=== PATIENT | female | born 1955 | race American Indian/Alaskan Native ===

== ENCOUNTER 2016-12-20 09:44 | Outpatient (CLI) | payer MEDICAID ==
[2016-12-20 10:10] LABS: Mean Corpuscular HGB Conc 32 % (30-34); Platelet Count 214 K/mm3 (140-440); Red Blood Count 5.75 M/mm3 (3.65-5.03); Red Cell Distribution Width 14.8 % (13.2-15.2)
[2016-12-20 10:13] LABS: Mean Corpuscular Volume 66 fl (79-97)
[2016-12-20 10:14] LABS: Mean Corpuscular Hemoglobin 21 pg (28-32)
[2016-12-20 10:35] LABS: Alanine Aminotransferase 24 units/L (7-56); Albumin 4.2 g/dL (3.9-5); Albumin/Globulin Ratio 1.4 %; Alkaline Phosphatase 105 units/L (35-129); Anion Gap 18 mmol/L; BUN/Creatinine Ratio 21.66; Blood Urea Nitrogen 13 mg/dL (7-17); Calcium 9.1 mg/dL (8.4-10.2); Carbon Dioxide 27 mmol/L (22-30); Chloride 107.2 mmol/L (98-107); Cholesterol 270 mg/dL (50-199); Glucose 112 mg/dL (65-100); HDL Cholesterol 52 mg/dL (40-59); LDL Cholesterol,Direct 182 mg/dL (50-130); Potassium 3.8 mmol/L (3.6-5.0); Sodium 148 mmol/L (137-145); Total Protein 7.2 g/dL (6.3-8.2); Triglycerides 181 mg/dL (2-149)
--- NOTE | 2016-12-20 12:13 | Cat Scan Report ---
CT chest with contrast: COPD. Transverse images are obtained through the chest into the upper abdomen with comparison to comparable exam in January 2015. Apical scar changes predominantly seen on the right are unchanged. The lungs are clear of any nodule and no infiltrate. The lungs appear relatively well aerated but are not convincingly hyperexpanded. Central airways are patent. There is no adenopathy. Cardiac chambers appear grossly normal in size. No filling defects identified in the pulmonary vessels. Sections carried into the upper abdomen demonstrate 3 cysts in the left kidney at least one of which seen on prior study. Kyphosis and degenerative spondylosis identified in the mid thoracic spine. The bones do appear somewhat demineralized. Impression: No acute change compared to 2015. No convincing changes of COPD.
== END 2016-12-20 09:45 | disposition home or self-care (01) ==
LOC: CT 09:44
PROVIDERS: ATTEND Internal Medicine
DX: J44.9 Chronic obstructive pulmonary disease, unspecified (principal); N28.1 Cyst of kidney, acquired; M47.894 Other spondylosis, thoracic region; M40.294 Other kyphosis, thoracic region
CPT/HCPCS: 36415; 71260; 80053; 80061; 82785; 84436; 84443; 85027; Q9967

== ENCOUNTER 2017-03-01 14:16 | Emergency (ER) | payer MEDICAID ==
[2017-03-01 14:49] VITALS: BP 145/68
[2017-03-01] MEDS ORDERED: DELTASONE PO ONE (16:04)
[2017-03-01] MEDS ORDERED: TYLENOL PO ONE (16:04)
[2017-03-01] MEDS ORDERED: DUONEB *Not for PRN Use IH ONE (16:05)
--- NOTE | 2017-03-01 17:30 | Emergency Department Report ---
Upper Respiratory HPI - HPI Chief Complaint: Upper Respiratory Infection Stated Complaint: gen illness/cough Time Seen by Provider: 03/01/17 15:57 Duration: 5 Days URI Symptoms: Rhinorrhea: Yes, Sore Throat: Yes, Cough: Yes, Shortness of Breath : No, Sick Contacts: No, Unable to Take Fluids: No, Urine Output Abnormal: No, Listless Behavior: No - Home Meds and Allergies Home Medications: Previous Rx's Medication Instructions Recorded Last Taken Type Acetaminophen/Codeine [Tylenol 2 tab PO Q6H PRN #20 tab 08/15/14 Unknown Rx /Codeine # 3 tab] Gentamicin 0.3% Ophth Soln 2 drops OP Q4H 5 Days 03/23/15 Unknown Rx traMADol [Ultram 50 MG tab] 50 mg PO Q6HR PRN #20 tablet 03/23/15 Unknown Rx diphenhydrAMINE [Benadryl CAP] 25 mg PO Q8HR PRN #15 capsule 08/09/15 Unknown Rx ALBUTEROL Inhaler [ProAir HFA 2 puff IH QID PRN #2 inhalation 03/01/17 Unknown Rx Inhaler] Azithromycin [Zithromax Z-ARIN] 250 mg PO DAILY #6 tablet 03/01/17 Unknown Rx P-Ephed HCl/Codeine/Guaifen 10 ml PO Q6H PRN #120 ml 03/01/17 Unknown Rx [Cheratussin DAC 30-10-100 mg/5 ml] predniSONE [Deltasone] 40 mg PO DAILY #10 tablet 03/01/17 Unknown Rx Allergies/Adverse Reactions: Allergies Allergy/AdvReac Type Severity Reaction Status Date / Time aspirin Allergy Rash Verified 08/14/14 18:26 ED Review of Systems ROS: Stated complaint: gen illness/cough Other details as noted in HPI Constitutional: chills, malaise Eyes: denies: eye pain, eye discharge, vision change ENT: ear pain, throat pain, congestion Respiratory: cough, wheezing Cardiovascular: denies: chest pain, palpitations, dyspnea on exertion, orthopnea , edema, syncope, paroxysmal nocturnal dyspnea Endocrine: no symptoms reported Gastrointestinal: denies: abdominal pain, nausea, diarrhea Genitourinary: denies: urgency, dysuria, discharge Musculoskeletal: denies: back pain, joint swelling, arthralgia Skin: denies: rash, lesions Neurological: as per HPI Psychiatric: denies: anxiety, depression Hematological/Lymphatic: denies: easy bleeding, easy bruising ED Past Medical Hx - Past Medical History Previous Medical History?: Yes Hx Kidney Stones: Yes Hx Asthma: Yes Hx COPD: Yes Additional medical history: BRONCHITIS. ASBESTOS EXPOSURE - Surgical History Past Surgical History?: Yes Additional Surgical History: HYSTERECTOMY - Social History Smoking Status: Never Smoker Substance Use Type: None - Medications Home Medications: Home Medications Medication Instructions Recorded Confirmed Last Taken Type Acetaminophen/Codeine [Tylenol 2 tab PO Q6H PRN #20 tab 08/15/14 Unknown Rx /Codeine # 3 tab] Gentamicin 0.3% Ophth Soln 2 drops OP Q4H 5 Days 03/23/15 Unknown Rx traMADol [Ultram 50 MG tab] 50 mg PO Q6HR PRN #20 tablet 03/23/15 Unknown Rx diphenhydrAMINE [Benadryl CAP] 25 mg PO Q8HR PRN #15 capsule 08/09/15 Unknown Rx ALBUTEROL Inhaler [ProAir HFA 2 puff IH QID PRN #2 inhalation 03/01/17 Unknown Rx Inhaler] Azithromycin [Zithromax Z-ARIN] 250 mg PO DAILY #6 tablet 03/01/17 Unknown Rx P-Ephed HCl/Codeine/Guaifen 10 ml PO Q6H PRN #120 ml 03/01/17 Unknown Rx [Cheratussin DAC 30-10-100 mg/5 ml] predniSONE [Deltasone] 40 mg PO DAILY #10 tablet 03/01/17 Unknown Rx ED Bronchiolitis Physical Exam - Exam General: Vital signs noted. No distress. Alert and acting appropriately. HEENT: Yes Pharyngeal Erythema, Yes Rhinorrhea, No Conjuctival Injection, No Dry Mucous Membranes Ear: Neither TM Bulge, Neither TM Erythema, Neither EAC Discharge Neck: No Adenopathy, No Rigidity Lungs: Yes Good Air Exchange, Yes Wheezes, Yes Cough, Yes Use of Accessory Muscles, No Clear Lung Sounds (mild exp wheezes bilat deminished bases bilat ), No Stridor, No Nasal Flaring, No Retractions Heart: Yes Regular, No Murmur Abdomen: Yes Peritoneal Signs, No Tenderness, No Normal Bowel Sounds Skin: No Rash, No Eczema Neurologic: Alert and oriented, no deficits. Musculoskeletal: Unremarkable. ED Bronchiolitis Tests - Testing Testing: CXR: Normal/Negative Treatments - Treaments Treatment: Improved Albuterol ED Physical Exam - General Limitations: No Limitations General appearance: alert, in no apparent distress, anxious - Head Head exam: Present: atraumatic, normocephalic - Eye Eye exam: Present: normal appearance Pupils: Present: normal accommodation - ENT ENT exam: Present: mucous membranes moist, TM's normal bilaterally, normal external ear exam - Expanded ENT Exam Expanded Mouth exam: Present: normal external inspection, tongue normal. Absent: trismus , tongue elevation Teeth exam: Present: normal inspection Throat exam: Positive: tonsillar erythema. Negative: tonsillomegaly, tonsillar exudate, R peritonsillar mass, L peritonsillar mass - Neck Neck exam: Present: normal inspection, full ROM. Absent: tenderness, lymphadenopathy, thyromegaly - Respiratory Respiratory exam: Present: wheezes, chest wall tenderness. Absent: respiratory distress, rales, rhonchi, stridor, accessory muscle use, decreased breath sounds , prolonged expiratory - Cardiovascular Cardiovascular Exam: Present: regular rate, normal rhythm, normal heart sounds. Absent: systolic murmur, diastolic murmur, rubs, gallop - GI/Abdominal GI/Abdominal exam: Present: soft, normal bowel sounds. Absent: distended, tenderness, guarding, rebound, rigid, diminished bowel sounds, organomegaly, mass, bruit, hernia - Rectal Rectal exam: Present: deferred - Extremities Exam Extremities exam: Present: normal inspection - Back Exam Back exam: Present: normal inspection - Neurological Exam Neurological exam: Present: alert, oriented X3, CN II-XII intact, normal gait. Absent: motor sensory deficit, reflexes normal - Psychiatric Psychiatric exam: Present: normal affect, normal mood - Skin Skin exam: Present: warm, dry, intact, normal color. Absent: rash ED Course Vital Signs 03/01/17 03/01/17 14:48 16:24 Temperature 99.2 F Pulse Rate 85 Respiratory 18 16 Rate Blood Pressure 145/68 O2 Sat by Pulse 95 Oximetry ED Medical Decision Making - EKG Data EKG shows normal: sinus rhythm Rate: normal - EKG Data When compared to previous EKG there are: no significant change Interpretation: normal EKG - Radiology Data Radiology results: report reviewed, image reviewed interpreted by me: no infiltrates no opacities. 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 exam: pt appears nontoxic ent: tms clear bilat, nose: milder erythema clear post nasal drip phayrnx: moderate erythema no exudate no lesions uvula midline no stridor airway is patent lungs exp wheezes with deminished bases bilat, cv: S1 and S2 no MRG, ekg noted NSR, no ectopy NSTEMI reviewed by ed attending, cx: no infiltrates no opactiies , pt symptoms have improved with steriods, duoneb, and tylenol recieved in ed plan: prednisone, zpack albuterol inhaler, continue symbicort, follow up with Pulmonology Dr. Avery , pt will call pulmonology in am to setup earliest appointment pt verbalized agreement and understanding of same. Critical care attestation.: If time is entered above; I have spent that time in minutes in the direct care of this critically ill patient, excluding procedure time. ED Disposition Clinical Impression: Bronchitis URI (upper respiratory infection) Qualifiers: URI type: acute nasopharyngitis (common cold) Qualified Code(s): J00 - Acute nasopharyngitis [common cold] Disposition: TO HOME OR SELFCARE Is pt being admited?: No Does the pt Need Aspirin: No Condition: Good Prescriptions: ALBUTEROL Inhaler [ProAir HFA Inhaler] 2 puff IH QID PRN #2 inhalation PRN Reason: Shortness Of Breath Azithromycin [Zithromax Z-ARIN] 250 mg PO DAILY #6 tablet P-Ephed HCl/Codeine/Guaifen [Cheratussin DAC 30-10-100 mg/5 ml] 10 ml PO Q6H PRN #120 ml PRN Reason: Cough predniSONE [Deltasone] 40 mg PO DAILY #10 tablet Referrals: PRIMARY CARE, [Primary Care Provider] - 3-5 Days Forms: Work/School Release Form(ED) Time of Disposition: 17:43
--- NOTE | 2017-03-01 18:24 | XRay Report ---
FINAL REPORT PROCEDURE: XR CHEST ROUTINE 2V TECHNIQUE: PA and lateral chest radiographs were obtained. CPT 81135 HISTORY: Cough. COPD. COMPARISON: No prior studies are available for comparison. FINDINGS: Heart: Normal. Mediastinum/Vessels: Mild aortic tortuosity and calcification. Lungs/Pleural space: Hyperinflation. Symmetric biapical pleural thickening. Moderate eventration of the medial right diaphragm. Bony thorax: Osteopenia. Mild multilevel disc space narrowing and osteophytes. Mild thoracic kyphosis. Slight dextroscoliotic curvature. Other: IMPRESSION: No radiographic evidence of acute cardiopulmonary disease. Aortic tortuosity and calcification. Hyperinflation suggests obstructive physiology.
== END 2017-03-01 17:59 | disposition home or self-care (01) ==
LOC: ED 14:16
DX: J40 Bronchitis, not specified as acute or chronic (principal); J00 Acute nasopharyngitis [common cold]; J45.909 Unspecified asthma, uncomplicated; J44.9 Chronic obstructive pulmonary disease, unspecified
CPT/HCPCS: 71020; 93005; 93010; 99283; J7512; 94640

== ENCOUNTER 2017-07-11 10:40 | Emergency (ER) | payer MEDICAID ==
--- NOTE | 2017-07-11 12:52 | XRay Report ---
CHEST XRAY, 2 VIEWS: History: Shortness of breath. Findings: There is mild diffuse interstitial coarsening. The lungs are hyperexpanded but clear. No infiltrate, pleural fluid or pneumothorax is detected. The cardiac silhouette and pulmonary vasculature are within normal limits for technique. The bony thorax is unremarkable. IMPRESSION: Changes consistent with COPD. No acute cardiopulmonary process. No significant change since 03/01/17.
[2017-07-11 14:03] LABS: Basophils % (Auto) 0.4 % (0.0-1.8); Eosinophils # (Auto) 0.2 K/mm3 (0.0-0.4); Eosinophils % (Auto) 2.7 % (0.0-4.3); Hematocrit 38.4 % (30.3-42.9); Lymphocytes # (Auto) 2.1 K/mm3 (1.2-5.4); Lymphocytes % (Auto) 26.5 % (13.4-35.0); Mean Corpuscular HGB Conc 31 % (30-34); Monocytes # (Auto) 0.7 K/mm3 (0.0-0.8); Monocytes % (Auto) 8.3 % (0.0-7.3); Platelet Count 255 K/mm3 (140-440); Red Blood Count 5.69 M/mm3 (3.65-5.03); Red Cell Distribution Width 14.2 % (13.2-15.2)
[2017-07-11 14:07] LABS: Mean Corpuscular Hemoglobin 21 pg (28-32); Mean Corpuscular Volume 68 fl (79-97)
[2017-07-11 14:19] LABS: BUN/Creatinine Ratio 20; Blood Urea Nitrogen 12 mg/dL (7-17); Calcium 9.4 mg/dL (8.4-10.2); Hemolysis Index 5
[2017-07-11] MEDS ORDERED: DUONEB *Not for PRN Use IH ONE (21:12)
--- NOTE | 2017-07-11 21:19 | Emergency Department Report ---
ED General Adult HPI - General Chief complaint: Dyspnea/Respdistress Stated complaint: SOB Time Seen by Provider: 07/11/17 20:53 Source: patient Mode of arrival: Ambulatory Limitations: No Limitations - History of Present Illness Initial comments: 62 yo female who comes in today due to shortness of breath, cough and congestion. She states that this has been present times one week. She admits to a history of bronchitis, copd, and asbestosis. Sees Pulmonology for. She admits to feeling like she has a cold or the flu. She denies chest pain, however, she has never seen a [employer]. She has also tried over the counter medications for as wel. -: week(s) (one) Location: chest Consistency: constant Improves with: none Worsens with: none Associated Symptoms: cough, fever/chills Treatments Prior to Arrival: other (over the counter medications ) - Related Data Previous Rx's Medication Instructions Recorded Last Taken Type Acetaminophen/Codeine [Tylenol 2 tab PO Q6H PRN #20 tab 08/15/14 Unknown Rx /Codeine # 3 tab] Gentamicin 0.3% Ophth Soln 2 drops OP Q4H 5 Days bottle 03/23/15 Unknown Rx traMADol [Ultram 50 MG tab] 50 mg PO Q6HR PRN #20 tablet 03/23/15 Unknown Rx diphenhydrAMINE [Benadryl CAP] 25 mg PO Q8HR PRN #15 capsule 08/09/15 Unknown Rx ALBUTEROL Inhaler [ProAir HFA 2 puff IH QID PRN #2 inhalation 03/01/17 Unknown Rx Inhaler] Azithromycin [Zithromax Z-ARIN] 250 mg PO DAILY #6 tablet 03/01/17 Unknown Rx Pseudoephed/Codeine/Guaifen 10 ml PO Q6H PRN #120 ml 03/01/17 Unknown Rx [Cheratussin DAC 30-10-100 mg/5 ml] predniSONE [Deltasone] 40 mg PO DAILY #10 tablet 03/01/17 Unknown Rx Allergies Allergy/AdvReac Type Severity Reaction Status Date / Time aspirin Allergy Rash Verified 08/14/14 18:26 ED Review of Systems ROS: Stated complaint: SOB Other details as noted in HPI Constitutional: malaise Eyes: denies: eye pain, eye discharge, vision change Respiratory: see HPI, cough, shortness of breath Cardiovascular: denies: chest pain, palpitations Endocrine: no symptoms reported Gastrointestinal: denies: abdominal pain, nausea, diarrhea Genitourinary: denies: urgency, dysuria, discharge Musculoskeletal: denies: back pain, joint swelling, arthralgia Skin: denies: rash, lesions Neurological: denies: headache, weakness, paresthesias Psychiatric: denies: anxiety, depression Hematological/Lymphatic: denies: easy bleeding, easy bruising ED Past Medical Hx - Past Medical History Previous Medical History?: Yes Hx Kidney Stones: Yes Hx Asthma: Yes Hx COPD: Yes Additional medical history: BRONCHITIS. ASBESTOS EXPOSURE - Surgical History Additional Surgical History: HYSTERECTOMY - Social History Smoking Status: Never Smoker Substance Use Type: None - Medications Home Medications: Home Medications Medication Instructions Recorded Confirmed Last Taken Type Acetaminophen/Codeine [Tylenol 2 tab PO Q6H PRN #20 tab 08/15/14 Unknown Rx /Codeine # 3 tab] Gentamicin 0.3% Ophth Soln 2 drops OP Q4H 5 Days bottle 03/23/15 Unknown Rx traMADol [Ultram 50 MG tab] 50 mg PO Q6HR PRN #20 tablet 03/23/15 Unknown Rx diphenhydrAMINE [Benadryl CAP] 25 mg PO Q8HR PRN #15 capsule 08/09/15 Unknown Rx ALBUTEROL Inhaler [ProAir HFA 2 puff IH QID PRN #2 inhalation 03/01/17 Unknown Rx Inhaler] Azithromycin [Zithromax Z-ARIN] 250 mg PO DAILY #6 tablet 03/01/17 Unknown Rx Pseudoephed/Codeine/Guaifen 10 ml PO Q6H PRN #120 ml 03/01/17 Unknown Rx [Cheratussin DAC 30-10-100 mg/5 ml] predniSONE [Deltasone] 40 mg PO DAILY #10 tablet 03/01/17 Unknown Rx ED Physical Exam - General Limitations: No Limitations General appearance: alert, in no apparent distress - Head Head exam: Present: atraumatic, normocephalic - Eye Eye exam: Present: normal appearance - ENT ENT exam: Present: mucous membranes moist - Neck Neck exam: Present: normal inspection - Respiratory Respiratory exam: Present: normal lung sounds bilaterally. Absent: respiratory distress - Cardiovascular Cardiovascular Exam: Present: regular rate, normal rhythm. Absent: systolic murmur, diastolic murmur, rubs, gallop - Extremities Exam Extremities exam: Present: normal inspection - Back Exam Back exam: Present: normal inspection - Neurological Exam Neurological exam: Present: alert, oriented X3 - Psychiatric Psychiatric exam: Present: normal affect, normal mood - Skin Skin exam: Present: warm, dry, intact, normal color. Absent: rash ED Course Vital Signs 07/11/17 07/11/17 07/11/17 12:00 18:05 21:30 Temperature 98.1 F 97.3 F L Pulse Rate 85 82 Pulse Rate [ 77 Posterior] Respiratory 16 14 Rate Respiratory 19 Rate [Posterior ] Blood Pressure 100/67 Blood Pressure 144/76 [Left] O2 Sat by Pulse 99 99 Oximetry 07/11/17 07/11/17 21:31 22:16 Temperature 98.3 F Pulse Rate 96 H Pulse Rate [ Posterior] Respiratory 20 Rate Respiratory Rate [Posterior ] Blood Pressure 134/63 Blood Pressure [Left] O2 Sat by Pulse Oximetry - Reevaluation(s) Reevaluation #1: 07/11/17 23:01 I spoke with the patient and informed her that I feel she has an upper respiratory infection. She doesn't need antibiotics or admission at this time. She was instructed to use her albuterol inhaler prn in addition to some over the counter Mucinex. Home today. ED Medical Decision Making - Lab Data Result diagrams: 07/11/17 13:38 07/11/17 13:38 - EKG Data -: EKG Interpreted by Me EKG shows normal: sinus rhythm Rate: normal - EKG Data When compared to previous EKG there are: no significant change Interpretation: no acute changes, normal EKG - Radiology Data Radiology results: report reviewed (Chest radiograph revealed copd. ) - Medical Decision Making Upper respiratory infection Copd Asbestosis History of bronchitis - Differential Diagnosis upper respiratory infection, copd, bronchitis, asbestosis Critical care attestation.: If time is entered above; I have spent that time in minutes in the direct care of this critically ill patient, excluding procedure time. ED Disposition Clinical Impression: COPD (chronic obstructive pulmonary disease), Asbestosis, Upper respiratory infection Disposition: TO HOME OR SELFCARE Is pt being admited?: No Does the pt Need Aspirin: No Condition: Stable Instructions: Chronic Obstructive Pulmonary Disease (ED), Upper Respiratory Infection (ED) Additional Instructions: Follow up with your provider as scheduled. May use your albuterol inhaler as needed for shortness of breath. Return to the ED for worsening shortness of breath, difficulty breathing, chest pain, fever, or chills. Referrals: PRIMARY CARE, [Primary Care Provider] - 3-5 Days Time of Disposition: 23:05
[2017-07-11 22:09] LABS: Creatine Kinase MB 1.3 ng/mL (0.0-4.0)
[2017-07-11 23:30] VITALS: BP 115/60
== END 2017-07-11 23:20 | disposition home or self-care (01) ==
LOC: ED 10:40
DX: J44.9 Chronic obstructive pulmonary disease, unspecified (principal); J61 Pneumoconiosis due to asbestos and other mineral fibers; J06.9 Acute upper respiratory infection, unspecified
CPT/HCPCS: 36415; 71046; 80048; 82550; 82553; 84484; 85025; 87400; 93005; 93010

== ENCOUNTER 2017-09-08 01:18 | Inpatient (IN) | payer MEDICAID ==
[2017-09-08 04:34] LABS: Basophils % (Auto) 0.3 % (0.0-1.8); Eosinophils % (Auto) 0.2 % (0.0-4.3); Hematocrit 35.5 % (30.3-42.9); Hemoglobin 11.2 gm/dl (10.1-14.3); Lymphocytes # (Auto) 1.1 K/mm3 (1.2-5.4); Lymphocytes % (Auto) 9.9 % (13.4-35.0); Mean Corpuscular HGB Conc 32 % (30-34); Monocytes # (Auto) 0.5 K/mm3 (0.0-0.8); Monocytes % (Auto) 4.8 % (0.0-7.3); Platelet Count 213 K/mm3 (140-440); Red Blood Count 5.31 M/mm3 (3.65-5.03); Red Cell Distribution Width 16.2 % (13.2-15.2)
[2017-09-08 04:37] LABS: BUN/Creatinine Ratio 20; Blood Urea Nitrogen 10 mg/dL (7-17); Calcium 8.7 mg/dL (8.4-10.2); Hemolysis Index 11
[2017-09-08 04:45] LABS: Mean Corpuscular Hemoglobin 21 pg (28-32); Mean Corpuscular Volume 67 fl (79-97)
--- NOTE | 2017-09-08 07:47 | Emergency Department Report ---
ED Syncope HPI - General Chief Complaint: Syncope Stated Complaint: FALL Time Seen by Provider: 09/08/17 06:32 Source: patient - History of Present Illness Initial Comments: This is a healthy 62-year-old female who presents after syncopal portable episode last night. Approximately 10:30 PM patient felt lightheaded after getting up from a standing position. Daughter witnessed her passing out and falling down a flight of steps. Upon awakening patient had right-sided headache which she attributes to the trauma falling down the steps. She also has severe right shoulder pain due to trauma. Her shoulder is very tender to touch. Pain in the shoulder is worse with movement. She has mild right temporal headache. She denies preceding headache. She did not have preceding chest pain. She did not have preceding palpitations. She denies any current shortness of breath. No history of hypertension. No history of diabetes. No history of cardiac disease. No history of tobacco, drug, alcohol use. Surgical history includes hysterectomy 20 to 30 years ago Timing/Prior Episodes: no prior history Precipitating Factors: Positive: lightheadedness Context: standing Loss of Consciousness: brief (seconds) Current Symptoms: back to normal, headache, other (right shoulder pain) - Related Data Allergies/Adverse Reactions: Allergies aspirin Allergy (Verified 08/14/14 18:26) Rash Home Medications: Ambulatory Orders Acetaminophen/Codeine [Tylenol /Codeine # 3 tab] 2 tab PO Q6H PRN #20 tab Gentamicin 0.3% Ophth Soln 2 drops OP Q4H 5 Days bottle 03/23/15 traMADol [Ultram 50 MG tab] 50 mg PO Q6HR PRN #20 tablet 03/23/15 diphenhydrAMINE [Benadryl CAP] 25 mg PO Q8HR PRN #15 capsule 08/09/15 ALBUTEROL Inhaler [ProAir HFA Inhaler] 2 puff IH QID PRN #2 inhalation 03/01/17 Azithromycin [Zithromax Z-ARIN] 250 mg PO DAILY #6 tablet 03/01/17 Pseudoephed/Codeine/Guaifen [Cheratussin DAC 30-10-100 mg/5 ml] 10 ml PO Q6H PRN #120 ml 03/01/17 predniSONE [Deltasone] 40 mg PO DAILY #10 tablet 03/01/17 ED Review of Systems ROS: Stated complaint: FALL Other details as noted in HPI Comment: All other systems reviewed and negative Constitutional: denies: chills Respiratory: denies: cough Cardiovascular: denies: chest pain, palpitations ED Past Medical Hx - Past Medical History Previous Medical History?: Yes Hx Kidney Stones: Yes Hx Asthma: Yes Hx COPD: Yes Additional medical history: BRONCHITIS. ASBESTOS EXPOSURE - Surgical History Past Surgical History?: Yes Additional Surgical History: HYSTERECTOMY - Social History Smoking Status: Never Smoker Substance Use Type: None - Medications Home Medications: Home Medications Medication Instructions Recorded Confirmed Last Taken Type Acetaminophen/Codeine [Tylenol 2 tab PO Q6H PRN #20 tab 08/15/14 Unknown Rx /Codeine # 3 tab] Gentamicin 0.3% Ophth Soln 2 drops OP Q4H 5 Days bottle 03/23/15 Unknown Rx traMADol [Ultram 50 MG tab] 50 mg PO Q6HR PRN #20 tablet 03/23/15 Unknown Rx diphenhydrAMINE [Benadryl CAP] 25 mg PO Q8HR PRN #15 capsule 08/09/15 Unknown Rx ALBUTEROL Inhaler [ProAir HFA 2 puff IH QID PRN #2 inhalation 03/01/17 Unknown Rx Inhaler] Azithromycin [Zithromax Z-ARIN] 250 mg PO DAILY #6 tablet 03/01/17 Unknown Rx Pseudoephed/Codeine/Guaifen 10 ml PO Q6H PRN #120 ml 03/01/17 Unknown Rx [Cheratussin DAC 30-10-100 mg/5 ml] predniSONE [Deltasone] 40 mg PO DAILY #10 tablet 03/01/17 Unknown Rx ED Physical Exam - General Limitations: No Limitations General appearance: alert, in no apparent distress - Head Head exam: Present: atraumatic, normocephalic - Eye Eye exam: Present: normal appearance - ENT ENT exam: Present: normal orophraynx, mucous membranes moist - Neck Neck exam: Present: normal inspection, other (no cervical spine tenderness no thoracic spine tenderness no lumbar spine tenderness). Absent: tenderness - Respiratory Respiratory exam: Present: normal lung sounds bilaterally. Absent: respiratory distress, wheezes, rales, rhonchi - Cardiovascular Cardiovascular Exam: Present: regular rate, normal rhythm, normal heart sounds. Absent: bradycardia, tachycardia, systolic murmur, diastolic murmur, rubs, gallop - GI/Abdominal GI/Abdominal exam: Present: soft, normal bowel sounds. Absent: distended, tenderness, guarding, rebound - Extremities Exam Extremities exam: Present: other (decreased range of motion of right shoulder due to guarding, no deformity noted no laceration distal extremity median ulnar radial nerves intact 2+ radial pulse) - Back Exam Back exam: Present: normal inspection - Neurological Exam Neurological exam: Present: alert, oriented X3 - Psychiatric Psychiatric exam: Present: normal affect, normal mood - Skin Skin exam: Present: warm, dry, intact, normal color. Absent: rash ED Course Vital Signs 09/08/17 09/08/17 09/08/17 02:31 03:04 06:41 Temperature 98.8 F Pulse Rate 81 80 82 Respiratory 18 25 H Rate Blood Pressure 170/82 170/82 157/79 O2 Sat by Pulse 98 96 96 Oximetry 09/08/17 09/08/17 06:45 07:16 Temperature Pulse Rate 79 Respiratory 23 18 Rate Blood Pressure 162/80 O2 Sat by Pulse 96 98 Oximetry ED Medical Decision Making - Lab Data Result diagrams: 09/08/17 04:13 09/08/17 04:13 - EKG Data -: EKG Interpreted by Me EKG shows normal: sinus rhythm, axis, ST-T waves Rate: normal - EKG Data 09/08/17 07:48 EKG obtained at 342 NSR nl rate nl axis nl intervals no ST-T signs of ischemia no ST elevation rate 80 beats a minute no signs of heart strain Critical care attestation.: If time is entered above; I have spent that time in minutes in the direct care of this critically ill patient, excluding procedure time. ED Disposition Clinical Impression: Syncope, CHI (closed head injury), Sprain of shoulder, right Disposition: -09 OP ADMIT IP TO THIS HOSP Is pt being admited?: Yes Does the pt Need Aspirin: No Condition: Stable Instructions: Syncope (ED) Time of Disposition: 09:18
[2017-09-08 07:59] LABS: Bacteria,Urine 1+ /HPF (Negative); Bilirubin,Urine NEG (Negative); Blood,Urine NEG (Negative); Color,Urine Yellow (Yellow); Mucus,Urine FEW /HPF; Protein,Urine <15 mg/dL mg/dL (Negative); Urobilinogen,Urine < 2.0 mg/dL (<2.0); WBC,Urine < 1.0 /HPF (0.0-6.0)
--- NOTE | 2017-09-08 08:42 | Cat Scan Report ---
FINAL REPORT EXAM: CT HEAD/BRAIN WO CON HISTORY: syncope headache TECHNIQUE: CT imaging is acquired through the brain without contrast. Transaxial reformations are provided. PRIORS: 05/25/2014 FINDINGS: Superior CSF spaces are mildly proportionately enlarged, consistent with parenchymal atrophy. Scattered deep and subcortical white matter hypodense foci are confluent in some areas and are compatible with microvascular angiopathy. No acute intracranial hemorrhage or mass effect. Right posterior scalp injury. No skull fracture. No significant abnormality within the imaged paranasal sinuses or mastoid air cells. IMPRESSION: No acute intracranial abnormality. 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 Right posterior scalp injury. No skull fracture.
[2017-09-08] MEDS ORDERED: PERCOCET 5/325 PO ONE (09:18)
--- NOTE | 2017-09-08 09:24 | XRay Report ---
XRAY RIGHT SHOULDER THREE VIEWS: 09/08/17 01:18:00 CLINICAL: Right shoulder pain after fall. FINDINGS: Normal glenohumeral alignment. Elevation of the clavicle relative to the acromion. No fracture. Normal soft tissues. IMPRESSION: Acromioclavicular separation which is possibly acute.
[2017-09-08] MEDS ORDERED: ZOFRAN IV PRN (10:28)
[2017-09-08] MEDS ORDERED: PROVENTIL IH PRN (10:28)
[2017-09-08] MEDS ORDERED: TYLENOL PO PRN (10:28)
[2017-09-08] MEDS ORDERED: SODIUM CHLORIDE FLUSH SYRINGE 10 ML IV PRN (10:28)
[2017-09-08] MEDS ORDERED: ULTRAM PO PRN (10:29)
[2017-09-08] MEDS ORDERED: PROAIR IH PRN (10:29)
[2017-09-08] MEDS ORDERED: TYLENOL #3 PO PRN (10:29)
[2017-09-08] MEDS ORDERED: BENADRYL PO PRN (10:29)
--- NOTE | 2017-09-08 10:32 | History and Physical Report ---
History of Present Illness Date of examination: 09/09/17 Date of admission: 09/08/17 09:19 Chief complaint: SYNCOPE History of present illness: Patient is assisted 62-year-old female who presents with syncopal episode going down a few flights of status. 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 She has not been followed with her primary care doctor due to follow-up with her current primary care physician. Otherwise no other medical conditions. On presentation she was noted to have a tender shoulder with pain worse with movement with mild temporal headache which has now resolved. Imaging studies did show separation of the before meals joint. The patient is status post syncopal episode in the past but this was related to emotional circumstances while she was updated for her family memeber Her shoulder is very tender to touch. Pain in the shoulder is worse with movement. She has mild right temporal headache. She denies preceding headache. She did not have preceding chest pain. She did not have preceding palpitations. She denies any current shortness of breath. No history of hypertension. No history of diabetes. No history of cardiac disease. ROS Constitutional: No fever, fatigue or weight loss. Skin: No rash. Eyes: No recent vision problems or eye pain. ENT: No congestion, ear pain, or sore throat. Endocrine: No thyroid problems. Cardiovascular: No chest pain. Respiratory: No cough, shortness of breath, congestion, or wheezing. Gastrointestinal: No abdominal pain, nausea, vomiting, or diarrhea. Genitourinary: No dysuria. Musculoskeletal: No joint swelling. Left shoulder pain Neurologic: No seizures. Hematologic: No unusual bruising or bleeding. Psychiatric: No psychiatric problems, hallucinations or depression. All other systems reviewed and otherwise negative. Past History Past Medical History: COPD, other (syncope) Past Surgical History: No surgical history Social history: no significant social history, lives with family Family history: no significant family history Medications and Allergies Allergies Allergy/AdvReac Type Severity Reaction Status Date / Time aspirin Allergy Rash Verified 08/14/14 18:26 Home Medications Medication Instructions Recorded Confirmed Last Taken Type Acetaminophen/Codeine [Tylenol 2 tab PO Q6H PRN #20 tab 08/15/14 09/09/17 2 Days Ago Rx /Codeine # 3 tab] ~09/07/17 2 puffs Gentamicin 0.3% Ophth Soln 2 drops OP Q4H 5 Days bottle 03/23/15 09/09/17 Unknown Rx diphenhydrAMINE [Benadryl CAP] 25 mg PO Q8HR PRN #15 capsule 08/09/15 Unknown Rx ALBUTEROL Inhaler [ProAir HFA 2 puff IH QID PRN #2 inhalation 03/01/17 09/09/17 Unknown Rx Inhaler] Azithromycin [Zithromax Z-ARIN] 250 mg PO DAILY #6 tablet 03/01/17 Unknown Rx Pseudoephed/Codeine/Guaifen 10 ml PO Q6H PRN #120 ml 03/01/17 Unknown Rx [Cheratussin DAC 30-10-100 mg/5 ml] predniSONE [Deltasone] 40 mg PO DAILY #10 tablet 03/01/17 Unknown Rx Active Meds: Active Medications Acetaminophen (Tylenol) 650 mg PO Q4H PRN PRN Reason: Pain MILD(1-3)/Fever >100.5/[place] Acetaminophen/Codeine Phosphate (Tylenol #3) 2 tab PO Q6H PRN PRN Reason: Pain Albuterol (Proair) 2 puff IH QID PRN PRN Reason: Shortness Of Breath Albuterol (Proventil) 2.5 mg IH Q4HRT PRN PRN Reason: Shortness Of Breath Diphenhydramine HCl (Benadryl) 25 mg PO Q8HR PRN PRN Reason: Itching Gentamicin Sulfate (Gentamicin 0.3% Ophth Soln) 2 drops OU Q4H [place] Ondansetron HCl (Zofran) 4 mg IV Q8H PRN PRN Reason: Nausea And Vomiting Oxycodone/Acetaminophen (Percocet 5/325) 1 tab PO Q6H PRN PRN Reason: Pain, Moderate (4-6) Prednisone (Deltasone) 40 mg PO DAILY [place] Sodium Chloride (Sodium Chloride Flush Syringe 10 Ml) 10 ml IV BID [place] Sodium Chloride (Sodium Chloride Flush Syringe 10 Ml) 10 ml IV PRN PRN PRN Reason: LINE FLUSH Tramadol HCl (Ultram) 50 mg PO Q6HR PRN PRN Reason: Pain Exam - Constitutional Vitals: Temp Pulse Resp BP Pulse Ox 98.8 F 79 18 162/80 98 09/08/17 03:04 09/08/17 06:45 09/08/17 07:16 09/08/17 06:45 09/08/17 07:16 Results - Labs CBC & Chem 7: 09/08/17 04:13 09/08/17 04:13 Labs: Laboratory Last Values WBC 10.7 K/mm3 (4.5-11.0) 09/08/17 04:13 RBC 5.31 M/mm3 (3.65-5.03) H 09/08/17 04:13 Hgb 11.2 gm/dl (10.1-14.3) 09/08/17 04:13 Hct 35.5 % (30.3-42.9) 09/08/17 04:13 MCV 67 fl (79-97) L 09/08/17 04:13 MCH 21 pg (28-32) L 09/08/17 04:13 MCHC 32 % (30-34) 09/08/17 04:13 RDW 16.2 % (13.2-15.2) H 09/08/17 04:13 Plt Count 213 K/mm3 (140-440) 09/08/17 04:13 Lymph % (Auto) 9.9 % (13.4-35.0) L 09/08/17 04:13 [place] % (Auto) 4.8 % (0.0-7.3) 09/08/17 04:13 Eos % (Auto) 0.2 % (0.0-4.3) 09/08/17 04:13 Baso % (Auto) 0.3 % (0.0-1.8) 09/08/17 04:13 Lymph # 1.1 K/mm3 (1.2-5.4) L 09/08/17 04:13 [place] # 0.5 K/mm3 (0.0-0.8) 09/08/17 04:13 Eos # 0.0 K/mm3 (0.0-0.4) 09/08/17 04:13 Baso # 0.0 K/mm3 (0.0-0.1) 09/08/17 04:13 Seg Neutrophils % 84.8 % (40.0-70.0) H 09/08/17 04:13 Seg Neutrophils # 9.1 K/mm3 (1.8-7.7) H 09/08/17 04:13 Sodium 143 mmol/L (137-145) 09/08/17 04:13 Potassium 3.7 mmol/L (3.6-5.0) 09/08/17 04:13 Chloride 104.0 mmol/L (98-107) 09/08/17 04:13 Carbon Dioxide 26 mmol/L (22-30) 09/08/17 04:13 Anion Gap 17 mmol/L 09/08/17 04:13 BUN 10 mg/dL (7-17) 09/08/17 04:13 Creatinine 0.5 mg/dL (0.7-1.2) L 09/08/17 04:13 Estimated GFR > 60 ml/min 09/08/17 04:13 BUN/Creatinine Ratio 20 % 09/08/17 04:13 Glucose 112 mg/dL (65-100) H 09/08/17 04:13 Calcium 8.7 mg/dL (8.4-10.2) 09/08/17 04:13 Troponin T < 0.010 ng/mL (0.00-0.029) 09/08/17 07:53 Urine Color Yellow (Yellow) 09/08/17 06:53 Urine Turbidity Clear (Clear) 09/08/17 06:53 Urine pH 7.0 (5.0-7.0) 09/08/17 06:53 Ur Specific [place] 1.013 (1.003-1.030) 09/08/17 06:53 Urine Protein <15 mg/dl mg/dL (Negative) 09/08/17 06:53 Urine Glucose (UA) Neg mg/dL (Negative) 09/08/17 06:53 Urine Ketones Neg mg/dL (Negative) 09/08/17 06:53 Urine Blood Neg (Negative) 09/08/17 06:53 Urine Nitrite Neg (Negative) 09/08/17 06:53 Urine Bilirubin Neg (Negative) 09/08/17 06:53 Urine Urobilinogen < 2.0 mg/dL (<2.0) 09/08/17 06:53 Ur Leukocyte Esterase Neg (Negative) 09/08/17 06:53 Urine WBC (Auto) < 1.0 /HPF (0.0-6.0) 09/08/17 06:53 Urine RBC (Auto) 1.0 /HPF (0.0-6.0) 09/08/17 06:53 Urine Bacteria (Auto) 1+ /HPF (Negative) 09/08/17 06:53 Urine Mucus Few /HPF 09/08/17 06:53 Assessment and Plan Assessment and plan: Patient is assisted 62-year-old female who presents with syncopal episode going down a few flights of status. 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 She has not been followed with her primary care doctor due to follow-up with her current primary care physician. Otherwise no other medical conditions. On presentation she was noted to have a tender shoulder with pain worse with movement with mild temporal headache which has now resolved. Imaging studies did show separation of the before meals joint. The patient is status post syncopal episode in the past but this was related to emotional circumstances while she was updated for her family memeber Her shoulder is very tender to touch. Pain in the shoulder is worse with movement. She has mild right temporal headache. She denies preceding headache. She did not have preceding chest pain. She did not have preceding palpitations. She denies any current shortness of breath. No history of hypertension. No history of diabetes. No history of cardiac disease. Syncope Acromioclavicular separation Shoulder pain secondary to injury HEADACHE SECONDARY TO FALL COPD-STABLE HTN PLAN Admit to tele supportive care neurochecks pain control shoulder sling monitor for any occult arrhythmia dvt/gi propy Advance Directives: Yes Plan of care discussed with patient/family: Yes
--- NOTE | 2017-09-08 11:11 | XRay Report ---
XRAYCERVICAL SPINE THREE VIEWS: 09/08/17 09:19:00 CLINICAL: Fall and neck pain. FINDINGS: Normal vertebral body height, alignment and disk spaces through T1. No fracture or subluxation. Mild degenerative change at C4-5 and C5-6. Normal soft tissues and airway. IMPRESSION: Mild degenerative change and no apparent traumatic injury.
[2017-09-08] MEDS: PERCOCET 5/325 PO PRN (15:27)
[2017-09-08] MEDS: GENTAMICIN 0.3% OPHTH SOLN OU SCH ×2 (15:42→21:30)
[2017-09-08] MEDS: SODIUM CHLORIDE FLUSH SYRINGE 10 ML IV SCH (21:30)
[2017-09-09] MEDS: GENTAMICIN 0.3% OPHTH SOLN OU SCH ×6 (03:34→21:38)
[2017-09-09] MEDS: PERCOCET 5/325 PO PRN ×2 (09:19→21:39)
[2017-09-09] MEDS: DELTASONE PO SCH (09:21)
[2017-09-09] MEDS: SODIUM CHLORIDE FLUSH SYRINGE 10 ML IV SCH ×2 (10:30→21:36)
--- NOTE | 2017-09-09 13:21 | Discharge Summary ---
Providers - Providers Date of Admission: 09/08/17 09:19 Attending physician: LYNDSAY BOCANEGRA MD Primary care physician: TERENCE CHANDRA Hospitalization Reason for admission: syncope Condition: Stable Hospital course: Patient is assisted 62-year-old female who presents with syncopal episode going down a few flights of status. 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 She has not been followed with her primary care doctor due to follow-up with her current primary care physician. Otherwise no other medical conditions. On presentation she was noted to have a tender shoulder with pain worse with movement with mild temporal headache which has now resolved. Imaging studies did show separation of the before meals joint. The patient is status post syncopal episode in the past but this was related to emotional circumstances while she was updated for her family member Her shoulder is very tender to touch. Pain in the shoulder is worse with movement. She has mild right temporal headache. She denies preceding headache. She did not have preceding chest pain. She did not have preceding palpitations. She denies any current shortness of breath. No history of hypertension. No history of diabetes. No history of cardiac disease. The patient remained stable with no events noted on telemetry. Due to repeated syncope although some have been related to emotional events also recommend patient be evaluated by cardiology consultation. Syncope Acromioclavicular separation Shoulder pain secondary to injury HEADACHE SECONDARY TO FALL COPD-STABLE HTN Disposition: -01 TO HOME OR SELFCARE Time spent for discharge: 35 mins Core Measure Documentation - Palliative Care Palliative Care/ Comfort Measures: Not Applicable - Core Measures Any of the following diagnoses?: none - VTE Discharge Requirements Deep Vein Thrombosis/Pulmonary Embolism Present on Admission: No Exam - Physical Exam Narrative exam: VITAL SIGNS: Reviewed. GENERAL: The patient appeared well nourished and normally developed. Vital signs as documented. HEAD: No signs of head trauma. EYES: Pupils are equal. Extraocular motions intact. EARS: Hearing grossly intact. MOUTH: Oropharynx is normal. NECK: No adenopathy, no JVD. CHEST: Chest with clear breath sounds bilaterally. No wheezes, rales, or rhonchi. CARDIAC: Regular rate and rhythm. S1 and S2, without murmurs, gallops, or rubs. VASCULAR: No Edema. Peripheral pulses normal and equal in all extremities. ABDOMEN: Soft, without detectable tenderness. No sign of distention. No rebound or guarding, and no masses palpated. Bowel Sounds normal. MUSCULOSKELETAL: right shoulder mild pain. Restricted sling in place Good range of motion of all major joints. Extremities without clubbing, cyanosis or edema. NEUROLOGIC EXAM: Alert and oriented x 3. No focal sensory or strength deficits. Speech normal. Follows commands. PSYCHIATRIC: Mood normal. SKIN: No rash or lesions. - Constitutional Vitals: Temp Pulse Resp BP Pulse Ox 99.1 F 85 18 141/76 91 09/09/17 12:40 09/09/17 12:40 09/09/17 12:40 09/09/17 12:40 09/09/17 12:40 Plan Activity: advance as tolerated, fall precautions Diet: low salt Special Instructions: record daily weights, record daily BP diary Durable Medical Equipment Needed Upon Discharge: other (shoulder sling) Follow up with: TERENCE CHANDRA MD [Primary Care Provider] - 7 Days AMAIRANI SERRANO MD [Staff Physician] - 7 Days Prescriptions: oxyCODONE /ACETAMINOPHEN [Percocet 5/325 mg] 1 tab PO Q6H PRN #14 tablet PRN Reason: Pain, Moderate (4-6)
[2017-09-09] MEDS: ANTIVERT PO PRN (19:02)
[2017-09-10] MEDS: GENTAMICIN 0.3% OPHTH SOLN OU SCH ×8 (03:50→23:43)
[2017-09-10 10:41] LABS: Hematocrit 35.3 % (30.3-42.9); Hemoglobin 11.4 gm/dl (10.1-14.3); Mean Corpuscular HGB Conc 32 % (30-34); Platelet Count 192 K/mm3 (140-440); Red Blood Count 5.33 M/mm3 (3.65-5.03); Red Cell Distribution Width 15.8 % (13.2-15.2)
[2017-09-10 10:42] LABS: Mean Corpuscular Hemoglobin 21 pg (28-32); Mean Corpuscular Volume 66 fl (79-97)
[2017-09-10 10:54] LABS: BUN/Creatinine Ratio 24; Blood Urea Nitrogen 17 mg/dL (7-17); Calcium 9.4 mg/dL (8.4-10.2); Hemolysis Index 3
[2017-09-10] MEDS: ANTIVERT PO PRN (11:35)
[2017-09-10] MEDS: K-DUR PO SCH ×2 (11:35→19:22)
[2017-09-10] MEDS: DELTASONE PO SCH (11:38)
[2017-09-10] MEDS: SODIUM CHLORIDE FLUSH SYRINGE 10 ML IV SCH ×2 (11:38→23:42)
--- NOTE | 2017-09-10 12:22 | Progress Note ---
Assessment and Plan Assessment and plan: Syncope Acromioclavicular separation Shoulder pain secondary to injury Headache, improving COPD- This is stable. No acute exacerbation HTN PLAN neurochecks pain control shoulder sling monitor for any occult arrhythmia Consult Orthopedic surgeon to evaluate acromio-clavicular separation History Interval history: Dizziness, pain right shoulder after fall Hospitalist Physical - Physical exam Narrative exam: Gen appearance: Not in acute distress, lying in bed, obese HEENT:Normocephalic, atraumatic Neck:supple, no JVD Lungs: Clear to auscultation bilaterally, no crackles , no wheeze Heart: S1 and S2 regular, no murmurs, rubs or gallop Abdomen: soft, non tender, non distended, normal bowel sounds Ext: Tenderness right shoulder, No edema, no clubbing, no cyanosis Neuro: Awake,alert,oriented x 3, moves all ext, non focal Psych: Normal mood - Constitutional Vitals: Temp Pulse Resp BP Pulse Ox 97.5 F L 72 18 124/64 96 09/10/17 07:54 09/10/17 07:54 09/10/17 07:54 09/10/17 07:54 09/10/17 07:54 Results - Labs CBC & Chem 7: 09/10/17 09:46 09/11/17 07:49 Labs: Laboratory Last Values WBC 9.0 K/mm3 (4.5-11.0) 09/10/17 09:46 RBC 5.33 M/mm3 (3.65-5.03) H 09/10/17 09:46 Hgb 11.4 gm/dl (10.1-14.3) 09/10/17 09:46 Hct 35.3 % (30.3-42.9) 09/10/17 09:46 MCV 66 fl (79-97) L 09/10/17 09:46 MCH 21 pg (28-32) L 09/10/17 09:46 MCHC 32 % (30-34) 09/10/17 09:46 RDW 15.8 % (13.2-15.2) H 09/10/17 09:46 Plt Count 192 K/mm3 (140-440) 09/10/17 09:46 Lymph % (Auto) 9.9 % (13.4-35.0) L 09/08/17 04:13 [place] % (Auto) 4.8 % (0.0-7.3) 09/08/17 04:13 Eos % (Auto) 0.2 % (0.0-4.3) 09/08/17 04:13 Baso % (Auto) 0.3 % (0.0-1.8) 09/08/17 04:13 Lymph # 1.1 K/mm3 (1.2-5.4) L 09/08/17 04:13 [place] # 0.5 K/mm3 (0.0-0.8) 09/08/17 04:13 Eos # 0.0 K/mm3 (0.0-0.4) 09/08/17 04:13 Baso # 0.0 K/mm3 (0.0-0.1) 09/08/17 04:13 Seg Neutrophils % 84.8 % (40.0-70.0) H 09/08/17 04:13 Seg Neutrophils # 9.1 K/mm3 (1.8-7.7) H 09/08/17 04:13 Sodium 137 mmol/L (137-145) 09/10/17 09:46 Potassium 3.0 mmol/L (3.6-5.0) L 09/10/17 09:46 Chloride 97.6 mmol/L (98-107) L 09/10/17 09:46 Carbon Dioxide 29 mmol/L (22-30) 09/10/17 09:46 Anion Gap 13 mmol/L 09/10/17 09:46 BUN 17 mg/dL (7-17) 09/10/17 09:46 Creatinine 0.7 mg/dL (0.7-1.2) 09/10/17 09:46 Estimated GFR > 60 ml/min 09/10/17 09:46 BUN/Creatinine Ratio 24 % 09/10/17 09:46 Glucose 112 mg/dL (65-100) H 09/10/17 09:46 Calcium 9.4 mg/dL (8.4-10.2) 09/10/17 09:46 Troponin T < 0.010 ng/mL (0.00-0.029) 09/08/17 07:53 Urine Color Yellow (Yellow) 09/08/17 06:53 Urine Turbidity Clear (Clear) 09/08/17 06:53 Urine pH 7.0 (5.0-7.0) 09/08/17 06:53 Ur Specific [place] 1.013 (1.003-1.030) 09/08/17 06:53 Urine Protein <15 mg/dl mg/dL (Negative) 09/08/17 06:53 Urine Glucose (UA) Neg mg/dL (Negative) 09/08/17 06:53 Urine Ketones Neg mg/dL (Negative) 09/08/17 06:53 Urine Blood Neg (Negative) 09/08/17 06:53 Urine Nitrite Neg (Negative) 09/08/17 06:53 Urine Bilirubin Neg (Negative) 09/08/17 06:53 Urine Urobilinogen < 2.0 mg/dL (<2.0) 09/08/17 06:53 Ur Leukocyte Esterase Neg (Negative) 09/08/17 06:53 Urine WBC (Auto) < 1.0 /HPF (0.0-6.0) 09/08/17 06:53 Urine RBC (Auto) 1.0 /HPF (0.0-6.0) 09/08/17 06:53 Urine Bacteria (Auto) 1+ /HPF (Negative) 09/08/17 06:53 Urine Mucus Few /HPF 09/08/17 06:53
[2017-09-10] MEDS ORDERED: K-DUR PO ONE (20:30)
[2017-09-10] MEDS: PERCOCET 5/325 PO PRN (23:41)
[2017-09-11] MEDS: GENTAMICIN 0.3% OPHTH SOLN OU SCH ×3 (03:23→12:00)
[2017-09-11 08:41] LABS: BUN/Creatinine Ratio 26; Blood Urea Nitrogen 18 mg/dL (7-17); Calcium 8.6 mg/dL (8.4-10.2); Hemolysis Index 1
--- NOTE | 2017-09-11 13:38 | Progress Note ---
Hospitalist Physical - Constitutional Vitals: Temp Pulse Resp BP Pulse Ox 97.9 F 75 18 112/72 96 09/11/17 11:15 09/11/17 11:15 09/11/17 11:15 09/11/17 11:15 09/11/17 11:15 Results - Labs CBC & Chem 7: 09/10/17 09:46 09/11/17 07:49 Labs: Laboratory Last Values WBC 9.0 K/mm3 (4.5-11.0) 09/10/17 09:46 RBC 5.33 M/mm3 (3.65-5.03) H 09/10/17 09:46 Hgb 11.4 gm/dl (10.1-14.3) 09/10/17 09:46 Hct 35.3 % (30.3-42.9) 09/10/17 09:46 MCV 66 fl (79-97) L 09/10/17 09:46 MCH 21 pg (28-32) L 09/10/17 09:46 MCHC 32 % (30-34) 09/10/17 09:46 RDW 15.8 % (13.2-15.2) H 09/10/17 09:46 Plt Count 192 K/mm3 (140-440) 09/10/17 09:46 Lymph % (Auto) 9.9 % (13.4-35.0) L 09/08/17 04:13 [place] % (Auto) 4.8 % (0.0-7.3) 09/08/17 04:13 Eos % (Auto) 0.2 % (0.0-4.3) 09/08/17 04:13 Baso % (Auto) 0.3 % (0.0-1.8) 09/08/17 04:13 Lymph # 1.1 K/mm3 (1.2-5.4) L 09/08/17 04:13 [place] # 0.5 K/mm3 (0.0-0.8) 09/08/17 04:13 Eos # 0.0 K/mm3 (0.0-0.4) 09/08/17 04:13 Baso # 0.0 K/mm3 (0.0-0.1) 09/08/17 04:13 Seg Neutrophils % 84.8 % (40.0-70.0) H 09/08/17 04:13 Seg Neutrophils # 9.1 K/mm3 (1.8-7.7) H 09/08/17 04:13 Sodium 141 mmol/L (137-145) 09/11/17 07:49 Potassium 4.2 mmol/L (3.6-5.0) D 09/11/17 07:49 Chloride 103.0 mmol/L (98-107) 09/11/17 07:49 Carbon Dioxide 30 mmol/L (22-30) 09/11/17 07:49 Anion Gap 12 mmol/L 09/11/17 07:49 BUN 18 mg/dL (7-17) H 09/11/17 07:49 Creatinine 0.7 mg/dL (0.7-1.2) 09/11/17 07:49 Estimated GFR > 60 ml/min 09/11/17 07:49 BUN/Creatinine Ratio 26 % 09/11/17 07:49 Glucose 103 mg/dL (65-100) H 09/11/17 07:49 Calcium 8.6 mg/dL (8.4-10.2) 09/11/17 07:49 Troponin T < 0.010 ng/mL (0.00-0.029) 09/08/17 07:53 Urine Color Yellow (Yellow) 09/08/17 06:53 Urine Turbidity Clear (Clear) 09/08/17 06:53 Urine pH 7.0 (5.0-7.0) 09/08/17 06:53 Ur Specific [place] 1.013 (1.003-1.030) 09/08/17 06:53 Urine Protein <15 mg/dl mg/dL (Negative) 09/08/17 06:53 Urine Glucose (UA) Neg mg/dL (Negative) 09/08/17 06:53 Urine Ketones Neg mg/dL (Negative) 09/08/17 06:53 Urine Blood Neg (Negative) 09/08/17 06:53 Urine Nitrite Neg (Negative) 09/08/17 06:53 Urine Bilirubin Neg (Negative) 09/08/17 06:53 Urine Urobilinogen < 2.0 mg/dL (<2.0) 09/08/17 06:53 Ur Leukocyte Esterase Neg (Negative) 09/08/17 06:53 Urine WBC (Auto) < 1.0 /HPF (0.0-6.0) 09/08/17 06:53 Urine RBC (Auto) 1.0 /HPF (0.0-6.0) 09/08/17 06:53 Urine Bacteria (Auto) 1+ /HPF (Negative) 09/08/17 06:53 Urine Mucus Few /HPF 09/08/17 06:53
--- NOTE | 2017-09-11 14:14 | Consultation ---
History of Present Illness - [facility] Consult date: 09/11/17 Consult reason: joint pain History of present illness: 63 y/o female with c/o right shoulder pain after a fall down stairs prior to admission, xrays taken in ED questionable for AC separation...no previous hx of shoulder problem Past History Past Medical History: COPD, other (syncope) Past Surgical History: No surgical history Social history: no significant social history, lives with family Family history: no significant family history Medications and Allergies Allergies Allergy/AdvReac Type Severity Reaction Status Date / Time aspirin Allergy Rash Verified 08/14/14 18:26 Home Medications Medication Instructions Recorded Confirmed Last Taken Type Gentamicin 0.3% Ophth Soln 2 drops OP Q4H 5 Days bottle 03/23/15 09/11/17 2 Weeks Ago Rx ~08/28/17 ALBUTEROL Inhaler [ProAir HFA 2 puff IH QID PRN #2 inhalation 03/01/17 09/11/17 2 Weeks Ago Rx Inhaler] ~08/28/17 Active Meds: Active Medications Acetaminophen (Tylenol) 650 mg PO Q4H PRN PRN Reason: Pain MILD(1-3)/Fever >100.5/[place] Last Admin: 09/08/17 21:29 Dose: 650 mg Acetaminophen/Codeine Phosphate (Tylenol #3) 2 tab PO Q6H PRN PRN Reason: Pain Albuterol (Proventil) 2.5 mg IH Q4H PRN PRN Reason: Shortness Of Breath Diphenhydramine HCl (Benadryl) 25 mg PO Q8H PRN PRN Reason: Itching Gentamicin Sulfate (Gentamicin 0.3% Ophth Soln) 2 drops OU Q4H [facility] Last Admin: 09/11/17 03:23 Dose: 2 drops Meclizine HCl (Antivert) 25 mg PO Q8H PRN PRN Reason: Vertigo Last Admin: 09/10/17 11:35 Dose: 25 mg Ondansetron HCl (Zofran) 4 mg IV Q8H PRN PRN Reason: Nausea And Vomiting Oxycodone/Acetaminophen (Percocet 5/325) 1 tab PO Q6H PRN PRN Reason: Pain, Moderate (4-6) Last Admin: 09/10/17 23:41 Dose: 1 tab Prednisone (Deltasone) 40 mg PO DAILY [facility] Last Admin: 09/10/17 11:38 Dose: 40 mg Sodium Chloride (Sodium Chloride Flush Syringe 10 Ml) 10 ml IV BID [facility] Last Admin: 09/10/17 23:42 Dose: 10 ml Sodium Chloride (Sodium Chloride Flush Syringe 10 Ml) 10 ml IV PRN PRN PRN Reason: LINE FLUSH Tramadol HCl (Ultram) 50 mg PO Q6H PRN PRN Reason: Pain Physical Examination - Physical exam Narrative exam: Right shoulder - active ROM O-80 degrees, tender at greater tuberosity, external rotation passive ok, no obvious deformity distal n/v intact plain xrays reviewed by me - no obvious fx/dislocation seen Assessment and Plan Right shoulder sprain recommend arm sling and oral pain meds, follow up in 2-3 wks after dc from hospital
[2017-09-11] MEDS: PERCOCET 5/325 PO PRN (14:19)
[2017-09-11] MEDS: DELTASONE PO SCH (14:19)
[2017-09-11] MEDS: ANTIVERT PO PRN ×2 (14:20→14:24)
[2017-09-11] MEDS: SODIUM CHLORIDE FLUSH SYRINGE 10 ML IV SCH (14:23)
--- NOTE | 2017-09-11 14:25 | Discharge Summary ---
Providers - Providers Date of Admission: 09/08/17 09:19 Date of discharge: 09/11/17 Attending physician: TERENCE HENDERSON 09/10/17 11:08 Consult to Physician [CONS] Routine Comment: Consulting Provider: ANASTACIO LATIF Physician Instructions: Reason For Exam: Acromioclavicular separation after fall Primary care physician: TERENCE CHANDRA Hospitalization Condition: Stable Disposition: DC-01 TO HOME OR SELFCARE Core Measure Documentation - Palliative Care Palliative Care/ Comfort Measures: Not Applicable - Core Measures Any of the following diagnoses?: none Exam - Constitutional Vitals: Temp Pulse Resp BP Pulse Ox 97.9 F 75 18 112/72 96 09/11/17 11:15 09/11/17 11:15 09/11/17 11:15 09/11/17 11:15 09/11/17 11:15 Plan Activity: advance as tolerated Diet: low fat, low cholesterol, low salt Additional Instructions: 1.Follow up with PCP in 1 week. 2.Follow up with Ramses Rico in 1 week. 3.No driving while on [place] Follow up with: AMAIRANI SERRANO MD [Staff Physician] - 7 Days TERENCE CHANDRA MD [Primary Care Provider] - 7 Days Prescriptions: HYDROcodone/ACETAMINOPHEN [[place] 5-325 Tablet] 1 each PO Q8H PRN #20 tablet PRN Reason: Pain Meclizine [Antivert] 25 mg PO Q8H PRN #20 tablet PRN Reason: Vertigo Other Discharge Orders: Shoulder Immobilizer (Amb) Location: None Selected
[2017-09-11 16:58] VITALS: BP 110/72
== END 2017-09-11 19:10 | disposition home or self-care (01) | DRG 563 ==
LOC: ED 01:18 → 4A 09:19
PROVIDERS: ADMIT Internal Medicine; ATTEND Internal Medicine
DX: S43.101A Unspecified dislocation of right acromioclavicular joint, initial encounter (principal); R55 Syncope and collapse; R51 Headache; I10 Essential (primary) hypertension; Z90.710 Acquired absence of both cervix and uterus; Z88.6 Allergy status to analgesic agent; Z87.442 Personal history of urinary calculi; W18.39XA Other fall on same level, initial encounter; Y93.89 Activity, other specified; Y92.89 Other specified places as the place of occurrence of the external cause; Y99.8 Other external cause status; J66.8 Airway disease due to other specific organic dusts; J61 Pneumoconiosis due to asbestos and other mineral fibers
CPT/HCPCS: 36415; 70450; 72040; 80048; 81001; 84484; 85025; 85027; 87086; 93005; 93010; J7512